=== PATIENT | male | born 1980 | race Caucasian/White ===

== ENCOUNTER 2017-06-04 16:09 | Emergency (ER) | payer SELFPAY ==
[2017-06-04] MEDS ORDERED: IBUPROFEN 400 MG TAB ONE (17:31)
--- NOTE | 2017-06-04 17:54 | RAD REPORT ---
EXAM DESCRIPTION: CT - Soft Tissue Neck W/Contr - 06/04/2017 5:36 pm CLINICAL HISTORY: Persistent sore throat, possible Hussain's angina TECHNIQUE: During dynamic enhancement using 100 milliliters nonionic IV contrast, axial 5 millimeter thick images of the neck were obtained. All CT scans are performed using dose optimization technique as appropriate and may include automated exposure control or mA/KV adjustment according to patient size. FINDINGS: Intracranial portion the examination is unremarkable. Mastoid air cells and paranasal sinu ses are clear. Minimal right deviation of the nasal septum. No globe or orbital content abnormality s een. No acute or destructive bone process. Condyles of the mandible are normally positioned. No erosive ch anges identified. No abscess, abnormal air collection or focal inflammatory changes along the floor the mouth. No findi ngs to confirm a Hussain's angina diagnosis. No tongue base abnormality seen. Tonsillar tissue is prominent. No tonsillar abscess identified. No a bnormal soft palate thickening seen. Epiglottis is normal. No vocal cord edema, mass or asymmetry see n. No cervical esophagus abnormality seen. Normal vascular enhancement seen. No vascular abnormality seen. The parotid, submandibular and thyroid gland tissue show no suspicious findings. IMPRESSION: No findings for Hussain's angina. No periodontal abscess or focal inflammatory changes identifiable. No erosive or destructive bone pro cess. Tonsillar tissue is relatively prominent. This is potentially normal for the patient. No tonsillar ab scess.
[2017-06-04 17:55] LABS: Glomerular Filtration Rate > 60 mL/min (>60)
--- NOTE | 2017-06-04 17:56 | ER ---
Nurse's Notes [facility] Name: Kirill Steiner Age: 36 yrs Sex: Male : 1980 Arrival Date: 06/04/2017 Time: 16:11 Bed 14 Private MD: Diagnosis: Acute pharyngitis Presentation: 06/04 16:17 Presenting complaint: Patient states: Sore throat for 2 days. Transition of care: aj patient was not received from another setting of care. Onset of symptoms was June 02, 2017. Care prior to arrival: None. 16:17 Method Of Arrival: Ambulatory 16:17 Acuity: RYAN 4 aj Triage Assessment: 16:17 General: Appears in no apparent distress. comfortable, Behavior is calm, cooperative, aj appropriate for age. Pain: Complains of pain in left aspect of posterior pharynx and right aspect of posterior pharynx. EENT: Reports pain when swallowing. Respiratory: Airway is patent Respiratory effort is even, unlabored, Respiratory pattern is regular, symmetrical. Derm: Skin is intact, is healthy with good turgor, Skin is pink, warm \\T\\ dry. normal. Historical: - Allergies: 16:17 No Known Allergies; - Home Meds: 16:17 None [Active]; aj - PMHx: 16:17 None; aj - PSHx: 16:17 None; aj - Immunization history:: Adult Immunizations up to date. - Social history:: Smoking status: Patient uses tobacco products, smokes one-half pack cigarettes per day. Screenin:20 Abuse screen: Denies threats or abuse. Nutritional screening: No deficits noted. rb1 Tuberculosis screening: No symptoms or risk factors identified. Fall Risk None identified. Assessment: 16:20 General: Appears in no apparent distress. comfortable, Behavior is calm, cooperative, rb1 Denies fever. Pain: Complains of pain in throat Pain currently is 9 out of 10 on a pain scale. Pain began 2-3 days ago. Pt. stated, "It hurts to swallow.". Neuro: Level of Consciousness is awake, alert, obeys commands, Oriented to person, place, time, situation. Cardiovascular: Capillary refill < 3 seconds is brisk in bilateral fingers. Respiratory: Airway is patent Respiratory effort is even, unlabored, Respiratory pattern is regular, symmetrical, Breath sounds are clear bilaterally. Denies shortness of breath. GI: Reports nausea. : No signs and/or symptoms were reported regarding the genitourinary system. Derm: Skin is pink, warm \\T\\ dry. 16:20 EENT: Throat is pink has patchy exudate. rb1 17:20 Reassessment: Patient appears in no apparent distress at this time. No changes from rb1 previously documented assessment. 17:28 Reassessment: pt. went to CT via wheelchair. rb1 17:48 Reassessment: Patient appears in no apparent distress at this time. Patient and/or rb1 family updated on plan of care and expected duration. Pain level reassessed. Patient is alert, oriented x 3, equal unlabored respirations, skin warm/dry/pink. Vital Signs: 16:17 BP 127 / 76; Pulse 94; Resp 18; Temp 97.6; Pulse Ox 99% on R/A; Weight 83.91 kg; Height aj 6 ft. 2 in. (187.96 cm); 17:02 BP 124 / 91; Pulse 73; Resp 17; Pulse Ox 97% on R/A; rb1 18:00 BP 123 / 89; Pulse 76; Resp 19; Pulse Ox 99% ; rb1 16:17 Body Mass Index 23.75 (83.91 kg, 187.96 cm) aj ED Course: 16:11 Patient arrived in ED. sb2 16:17 Triage completed. aj 16:17 Lyndsey Chin FNP-C is [facility]. kb 16:17 Dex Lima MD is Attending Physician. kb 16:17 Arm band placed on left wrist. Patient placed in an exam room. aj 16:20 Patient has correct armband on for positive identification. Bed in low position. Call rb1 light in reach. Side rails up X 1. Pulse ox on. NIBP on. 16:21 Joanne Flanagan, RN is Primary Nurse. rb1 16:27 Strep Sent. rb1 17:22 Initial lab(s) drawn, by me, sent to lab. Inserted saline lock: 20 gauge in right dh3 antecubital area, using aseptic technique. Blood collected. 17:[address] via wheelchair. rb1 17:35 CT completed. Patient tolerated procedure well. Patient moved back from CT. nj 17:36 CT Soft Tissue Neck W/contr In Process Unspecified. EDMS 18:25 No provider procedures requiring assistance completed. IV discontinued, intact, rb1 bleeding controlled, No redness/swelling at site. Pressure dressing applied, Pt. DC'd his own IV because he stated, "I didn't want it in there anymore.". Administered Medications: 17:15 Drug: Ibuprofen 800 mg Route: PO; rb1 17:45 Follow up: Response: No adverse reaction; Pain is decreased rb1 Outcome: 17:56 Discharge ordered by MD. brunson 18:25 Discharged to home ambulatory, with family. rb1 18:25 Condition: stable 18:25 Discharge instructions given to patient, Instructed on discharge instructions, follow up and referral plans. Demonstrated understanding of instructions, follow-up care, Prescriptions given X none 18:25 Patient left the ED. rb1 Signatures: Dispatcher [employer] EDMS Lyndsey Chin, WELL REACTIVATOR OPERATOR-C WELL REACTIVATOR OPERATOR-Lourdes Peters, RN Joanne Dennison RN RN rb1 Bony Vasquez Deanna 3 Leesa Streeter2 Corrections: (The following items were deleted from the chart) 16:30 16:30 EENT: Throat rb1 rb1 18:38 18:37 Patient left the ED. rb1 rb1
--- NOTE | 2017-06-04 17:56 | EDPHYS ---
Physician Documentation [facility] Name: Kirill Steiner Age: 36 yrs Sex: Male : 1980 Arrival Date: 06/04/2017 Time: 16:11 Bed 14 Private MD: ED Physician Dex Lima HPI: 06/04 17:10 This 36 yrs old Male presents to ER via Ambulatory with complaints of Sore kb Throat. 17:10 The patient presents with sore throat. The patient describes throat pain as constant. kb The patient has not recently seen a physician. 17:10 Onset: The symptoms/episode began/occurred 2 day(s) ago. Severity of symptoms: At their kb worst the symptoms were moderate, in the emergency department the symptoms are unchanged. Modifying factors: The symptoms are alleviated by nothing, the symptoms are aggravated by swallowing, Patient's oral intake status: limited fluid intake, limited food intake, Denies contact with similarly ill indivduals. Associated signs and symptoms: Pertinent positives: Sore throat swelling and tenderness under tongue. The patient has not experienced similar symptoms in the past. Historical: - Allergies: 16:17 No Known Allergies; aj - Home Meds: 16:17 None [Active]; aj - PMHx: 16:17 None; aj - PSHx: 16:17 None; aj - Immunization history:: Adult Immunizations up to date. - Social history:: Smoking status: Patient uses tobacco products, smokes one-half pack cigarettes per day. ROS: 17:01 Constitutional: Negative for fever, chills, and weight loss, Cardiovascular: Negative kb for chest pain, palpitations, and edema, Respiratory: Negative for shortness of breath, cough, wheezing, and pleuritic chest pain, Abdomen/GI: Negative for abdominal pain, nausea, vomiting, diarrhea, and constipation, MS/Extremity: Negative for injury and deformity, Skin: Negative for injury, rash, and discoloration, Neuro: Negative for headache, weakness, numbness, tingling, and seizure. 17:01 ENT: Positive for sore throat. Exam: 17:01 Constitutional: This is a well developed, well nourished patient who is awake, alert, kb and in no acute distress. Head/Face: Normocephalic, atraumatic. Neck: Trachea midline, no thyromegaly or masses palpated, and no cervical lymphadenopathy. Supple, full range of motion without nuchal rigidity, or vertebral point tenderness. No Meningismus. Chest/axilla: Normal chest wall appearance and motion. Nontender with no deformity. No lesions are appreciated. Cardiovascular: Regular rate and rhythm with a normal S1 and S2. No gallops, murmurs, or rubs. Normal PMI, no JVD. No pulse deficits. Respiratory: Lungs have equal breath sounds bilaterally, clear to auscultation and percussion. No rales, rhonchi or wheezes noted. No increased work of breathing, no retractions or nasal flaring. Abdomen/GI: Soft, non-tender, with normal bowel sounds. No distension or tympany. No guarding or rebound. No evidence of tenderness throughout. Skin: Warm, dry with normal turgor. Normal color with no rashes, no lesions, and no evidence of cellulitis. MS/ Extremity: Pulses equal, no cyanosis. Neurovascular intact. Full, normal range of motion. Neuro: Awake and alert, GCS 15, oriented to person, place, time, and situation. Cranial nerves II-XII grossly intact. Motor strength 5/5 in all extremities. Sensory grossly intact. Cerebellar exam normal. Normal gait. 17:11 ENT: External ear(s): are unremarkable, Ear canal(s): are normal, TM's: are normal, kb Nose: is normal, Mouth: inflammation and tenderness to floor of mouth. Vital Signs: 16:17 BP 127 / 76; Pulse 94; Resp 18; Temp 97.6; Pulse Ox 99% on R/A; Weight 83.91 kg; Height aj 6 ft. 2 in. (187.96 cm); 17:02 BP 124 / 91; Pulse 73; Resp 17; Pulse Ox 97% on R/A; rb1 18:00 BP 123 / 89; Pulse 76; Resp 19; Pulse Ox 99% ; rb1 16:17 Body Mass Index 23.75 (83.91 kg, 187.96 cm) aj MDM: 16:19 Patient medically screened. 17:07 Data reviewed: vital signs, nurses notes. Data interpreted: Pulse oximetry: on room air kb is 99 %. Interpretation: normal. 17:55 Counseling: I had a detailed discussion with the patient and/or guardian regarding: the kb historical points, exam findings, and any diagnostic results supporting the discharge/admit diagnosis, lab results, radiology results, the need for outpatient follow up, a family practitioner, to return to the emergency department if symptoms worsen or persist or if there are any questions or concerns that arise at home. 06/04 16:17 Order name: Strep kb 06/04 16:18 Order name: Group A Streptococcus Rapid Sc; Complete Time: 16:54 EDPA 06/04 16:52 Order name: Throat Culture EDPA 06/04 17:07 Order name: Creatinine for Radiology; Complete Time: 17:56 kb 06/04 17:07 Order name: CT Soft Tissue Neck W/contr; Complete Time: 17:55 kb Administered Medications: 17:15 Drug: Ibuprofen 800 mg Route: PO; rb1 17:45 Follow up: Response: No adverse reaction; Pain is decreased rb1 Disposition: 06/04/17 17:56 Discharged to Home. Impression: Acute pharyngitis. - Condition is Stable. - Discharge Instructions: Pharyngitis, Wovc-[id number], Viral Infections, [id number], Sore Throat, [id number]. - Medication Reconciliation Form, Thank You Letter, Antibiotic Education, Prescription Opioid Use, Work release form form. - Follow up: Emergency Department; When: As needed; Reason: Worsening of condition. Follow up: Private Physician; When: 2 - 3 days; Reason: Recheck today's complaints, Continuance of care, Re-evaluation by your physician. Addendum: 06/06/2017 06:23 Co-signature as Attending Physician, Dex Lima MD. g s Signatures: Dispatcher [employer] Lyndsey Miller, VELIA TOLBERT-Lourdes Peters, RN RN Joanne Zamarripa, RN RN rb1 Dex Lima MD MD
== END 2017-06-04 18:37 | disposition home or self-care (01) ==
LOC: ER 16:09
DX: J02.9 Acute pharyngitis, unspecified (principal); F17.210 Nicotine dependence, cigarettes, uncomplicated
CPT/HCPCS: 36415; 70491; 87070; 87081; 99284; Q9967